=== PATIENT | male | born 1965 | race Caucasian/White ===

== ENCOUNTER 2019-10-28 12:42 | Emergency (ER) | payer OTHER ==
[~2019-10-28] VITALS: Ht 180.3 cm; Wt 79.4 kg
[2019-10-28] MEDS ORDERED: LIDOCAINE 1% INJ 50 ML MDV IJ ONE (13:42)
[2019-10-28] MEDS: LIDOCAINE HCL/PF 1% 30 ML VIAL TP ONE (14:18)
--- NOTE | 2019-10-28 14:45 | NUR ---
Patient awake alert non distress DC home discussed by Dr. Cadena patient agrees to follow PMD in 2 days agrees
--- NOTE | 2019-10-28 14:46 | NUR ---
Ok to have water and waiting for his for Dc home
[2019-10-28 15:57] VITALS: BP 132/72
== END 2019-10-28 15:58 | disposition home or self-care (01) ==
LOC: ER 12:50
DX: S06.0X0A Concussion without loss of consciousness, initial encounter (principal); S62.616A Displaced fracture of proximal phalanx of right little finger, initial encounter for closed fracture; S00.81XA Abrasion of other part of head, initial encounter; S00.211A Abrasion of right eyelid and periocular area, initial encounter; S00.511A Abrasion of lip, initial encounter; I10 Essential (primary) hypertension; E78.00 Pure hypercholesterolemia, unspecified; Z98.890 Other specified postprocedural states; V19.9XXA Pedal cyclist (driver) (passenger) injured in unspecified traffic accident, initial encounter; Y93.89 Activity, other specified; Y92.488 Other paved roadways as the place of occurrence of the external cause; Y99.8 Other external cause status
CPT/HCPCS: 26725; 70450; 70486; 71045; 72125; 73130; 99285; J3490 ×2